=== PATIENT | female | born 1965 | race Caucasian/White ===

== ENCOUNTER → 2020-10-03 | Outpatient (CLI) | payer OTHER ==
[~2020-10-03] MED LIST: ALPR.25 PO; FERR325 PO; FISH1000; FURO20; LOSA50 PO; MULVITA PO; Motion Sickness25 M1 PO; OLME20; OXYACE5T PO; POTA10T; PSYL5.85P PO; SULTRIDS PO; VITB100 PO; Zofran Odt8 MG SL
== END | disposition home or self-care (01) ==
LOC: LAB EV 09:02 → LAB SHORT 09:02
DX: N12 Tubulo-interstitial nephritis, not specified as acute or chronic (principal)
CPT/HCPCS: 87086

== ENCOUNTER → 2023-12-24 | Outpatient (CLI) | payer OTHER | END | disposition home or self-care (01) | LOC: LAB 08:57 → LAB SHORT 08:57 | DX: L82.0 Inflamed seborrheic keratosis (principal) | CPT/HCPCS: 88305 ==